=== PATIENT | male | born 1975 | race Caucasian/White ===

== ENCOUNTER 2020-10-18 10:32 | Emergency (ER) | payer OTHER ==
[~2020-10-18] VITALS: Ht 182.9 cm; Wt 99.8 kg
[~2020-10-18 10:32] MED LIST: ACETAMINOPHEN-1 EAC1 PO; NOHOMEMEDICATIONS; ROBAXIN500 MG PO
[2020-10-18] MEDS ORDERED: XANAX 0.5 MG0.5 M1 PO (11:03)
[2020-10-18 11:19] VITALS: BP 134/72
== END 2020-10-18 11:19 | disposition home or self-care (01) ==
LOC: M.ERS 10:32
DX: F41.9 Anxiety disorder, unspecified (principal); Z88.1 Allergy status to other antibiotic agents; Z88.2 Allergy status to sulfonamides